=== PATIENT | female | born 1990 | race Caucasian/White ===

== ENCOUNTER 2019-01-13 13:03 | Emergency (ER) | payer SELFPAY ==
[~2019-01-13] VITALS: Ht 170.2 cm; Wt 130.4 kg
[~2019-01-13 13:03] MED LIST: ACET325T33 PO
[2019-01-13 13:52] VITALS: BP 121/76; PULSE 91; RESP 18; Ht 170.2 cm; Wt 130.4 kg
== END 2019-01-13 16:31 | disposition home or self-care (01) ==
LOC: FTE 13:03
DX: O02.1 Missed abortion (principal)
CPT/HCPCS: 36415; 76801; 81003; 81025; 84702; 85025; 86900; 86901